=== PATIENT | male | born 1945 | race Caucasian/White ===

== ENCOUNTER 2024-01-17 07:40 | Day surgery (SDC) | payer OTHER, SELFPAY ==
[2024-01-05 10:26] VITALS: BMI 38.9
[2024-01-05 10:55] LABS: % Basophils 0.5 % (0-2); % Eosinophils 2.1 % (0-6); % Immature Granulocytes 0.6 % (0-0.5); % Lymphocytes 16.1 % (20.5-51.1); % Monocytes 9.1 % (1.7-9.3); % Neutrophils 71.6 % (42.2-75.2); Absolute Eosinophils 0.2 10^3/uL (0-0.7); Absolute Immature Granulocytes 0.1 10^3/uL (0-0.05); Absolute Lymphocytes 1.4 10^3/uL (1.2-3.4); Absolute Monocytes 0.8 10^3/uL (0.1-0.6); Absolute Neutrophils 6.2 10^3/uL (1.4-6.5); Hematocrit 43.1 % (39.0-52.0); Hemoglobin 15.4 g/dL (13.0-18.0); Mean Corp Hgb Conc. 35.7 g/dL (33.0-37.0); Mean Corpuscular Hgb 31.8 pg (27.0-31.0); Mean Platelet Volume 11.8 fL (7.4-10.4); Nucleated Red Blood Cells % 0 % (-); Platelet Count 179 10^3/uL (130-400); Red Blood Cell Count 4.84 10^6/uL (4.70-6.10); White Blood Cell Count 8.7 10^3/uL (4.8-10.8)
[2024-01-05 11:09] LABS: INR 1.17
[2024-01-05 12:04] LABS: ALT (SGPT) 18 U/L (0-50); AST (SGOT) 25 U/L (17-59); Albumin 4.3 g/dl (3.5-5.0); Alkaline Phosphatase 66 U/L (38-126); Blood Urea Nitrogen 18 mg/dl (9-20); Calcium 9.2 mg/dl (8.4-10.2); Carbon Dioxide 25 mmol/L (22-30); Chloride 106 mmol/L (98-107); Estimated Creatinine Clearance 78 ml/min; Glucose 88 mg/dl (70-99); Potassium 4.1 mmol/L (3.5-5.1); Sodium 138 mmol/L (135-145); Total Bilirubin 0.8 mg/dl (0.2-1.3); Total Protein 6.3 g/dl (6.3-8.2); eGFR > 60.00
[2024-01-17] VITALS (11 sets, daily range): BP systolic 101–157; BP diastolic 66–93; BMI 37.7
[2024-01-17 11:03] LABS: ACT-LR - POC 292 Seconds (116-155)
[2024-01-17 11:24] LABS: ACT-LR - POC 269 Seconds (116-155)
--- NOTE | 2024-01-17 11:39 | ITS.CL.ABL ---
Foster Care Social Worker - Ablation
Ablation
Procedure Report:
ELECTROPHYSIOLOGY ABLATION STUDY
�
DATE:: January 17, 2024�����������������������������REFERRING: Dr. El Newton
�
INDICATION: Persistent supraventricular tachycardia in the form of atrial fibrillation.��Prior 28 mm cryoballoon PVI
�
HISTORY: See H and P.��As above
�
ANTIARRHYTHMIC DRUG: Diltiazem
�
PRE-PROCEDURE GRAZYNA: No atrial thrombus on intracardiac ultrasound
�
PRESENTING RHYTHM: Atrial fibrillation
�
'TIME-OUT':��called and confirmed.
�
SEDATION/ANESTHESIA:��provided via the anesthesia department using general anesthesia (LMA).
�
INTRAVENOUS/ARTERIAL ACCESS:
Right femoral venous - 8Fr
Left femoral venous - 8 Fr, 6 Fr
Ultrasound guidance for bilateral femoral vein access was utilized by me to obtain access with demonstration of normal anatomy
CHADS-VASC Score:
�
HAS-Bled Score
�
PROCEDURE:
1.��A decapolar CS catheter was placed within the CS for mapping and pacing.��This was also used as the reference catheter for the 3-D map. The pulmonary veins were isolated at baseline. We were able to navigate the patient's IVC filter under
fluoroscopic imaging and were able to accommodate the pacing catheter, intracardiac ultrasound, and the transseptal sheath through the IVC filter.
�
2. The intracardiac ultrasound catheter was positioned in the RA to identify the FO for targeting of transseptal puncture, assist��in identification of the pulmonary vein ostia, monitoring pre and post ablation pulmonary vein flow velocities,
monitoring for 'bubble' formation during RF application as a sign of thermal injury,��and to monitor for pericardial effusion during mapping and ablation procedure.���Left atrial size, LV ejection fraction, and pulmonary vein flows were monitored
pre and post ablation procedure. The other valves were inspected and found to be free of significant regurgitation or stenosis.
�
3.��Half of the calculated heparin bolus was administered prior to the first transeptal puncture.��Transseptal puncture was performed to diagnose RA and LA pressure so that safetey of LA mapping and ablation could be further assessed, and to access
the left atrium and pulmonary veins for mapping and ablation.��This entailed advancing an 10 Setswana steerable with dilator into the superior vena cava and withdrawing both (monitoring intracardiac ultrasound, fluoroscopy and tip pressure) with the
tip oriented toward the atrial septum.��The fossa ovalis was engaged (indicated by sudden displacement of the sheath tip as well as tenting of the fossa seen on intracardiac ultrasound).��Left atrial access required a pass with the [place]
needle extended.��Left atrial catheter position was confirmed by pressure monitoring (RA mean pressure 8 mm Hg and LA mean presure 14 mm Hg), LA saturation (99%),��as well as fluoroscopy.��The sheath was advanced over the dilator and positioned in
the left atrium.��Over a ProTrac wire the contour sheath was brought to the left atrium over the wire after transseptal with a 10 Setswana steerable sheath. �The remainder of the calculated heparin bolus was administered and heparin was
infused to maintain ACT at 300 -350 seconds throughout the case.
�
4.��RA pacing was performed via the proximal decapolar poles and LA pacing was performed via the distal decapolr poles.
�
5. A quadrapolar catheter was first positioned at the His position for His Bundle recording which was tagged via the 3-D Navex sytem, and then passed to the RVA for RV pacing and recording.
�
6. The ablation catheter was positioned through one of the transeptal seaths and a 20 pole ring mapping catheter was positioned through the second seath into the LA and then the ostia of the LIPV, LSPV, RSPV and the RIPV.��
�
7.��Next, a 3-D map was created using Navex.���A 3-D reconstructed CT image was compared to the 3-D Navex map to assist in anatomic interpretation, mapping and ablation.��The CT image and the NavX image were fused.
�
8. A total of 62 lesions with PFA pulsed select catheter were given starting from each antra on the posterior wall through the posterior wall from left to right veins and also substrate modification of the interatrial septal fossa. Once entrance
block was confirmed in all 4 pulmonary veins and the posterior wall the patient was converted to sinus rhythm with 1 300 J synchronized biphasic shock. Entrance and exit block was achieved in all 4 pulmonary veins and the posterior wall the left
atrium.
�
9. Normal sinus node and AV mindy function post procedure with a resting sinus rate of 1200 ms. Heart AV block was noted at 410 ms in the AH.
�
TOTAL FLOURO TIME: 10.6 minutes 112 mGy
�
TOTAL RF DURATION: 0 minutes
�
REVERSAL OF HEPARIN: 30 mg of protamine, slow IV administration
�
COMPLICATIONS:
None
Intracardiac US shows no pericardial effusion post ablation.
�
SUMMARY:��
Complex left atrial mapping and ablation.
Isolation of all 4 pulmonary veins at baseline with isolation of left atrial posterior wall
�
RECOMMENDATIONS:
1. Admit to monitored bed.��
2. Resume anticoagulation
3.��Out of bed in 4 hours consider same discharge
4.� Low-dose calcium channel kamaljit
�
Copy to: Dr. El Newton
�
[2024-01-17] MEDS: FLOMAX 0.4 MG PO (14:01)
[2024-01-17] MEDS: ANESTHETIC LOZENGE 1 LOZENGE PO (14:05)
--- NOTE | 2024-01-17 15:53 | W.PN.UPDATE ---
Update Note
Progress Note Update
78 yo WM s/p redo PVI (same day). He feels good, no cp, sob, nereyda diet, voiding, EKG SR, b/l groins c/d/i no HT, soft. He will continue OAC Eliquis at 6pm at home. He will continue diltiazem. He will f/u Dr. Newton in 2 mo. He is for d/c home after
430pm if groins stable.
SUMMARY:��
Complex left atrial mapping and ablation.
Isolation of all 4 pulmonary veins at baseline with isolation of left atrial posterior wall
�
RECOMMENDATIONS:
1. Admit to monitored bed.��
2. Resume anticoagulation
3.��Out of bed in 4 hours consider same discharge
4.� Low-dose calcium channel kamaljit
�
Copy to: Dr. El Newton
== END 2024-01-17 15:30 | disposition home or self-care (01) ==
LOC: CATH 07:40
PROVIDERS: ATTENDING PHYSICIAN Internal Medicine Cardiovascular Disease; FAMILY PHYSICIAN Family Medicine; OTHER PHYSICIAN Internal Medicine Cardiovascular Disease
DX: I48.19 Other persistent atrial fibrillation (principal); R53.1 Weakness; R00.2 Palpitations; R06.02 Shortness of breath; Z79.01 Long term (current) use of anticoagulants; E66.9 Obesity, unspecified; Z68.38 Body mass index [BMI] 38.0-38.9, adult; I10 Essential (primary) hypertension; E78.5 Hyperlipidemia, unspecified; Z86.718 Personal history of other venous thrombosis and embolism; G47.33 Obstructive sleep apnea (adult) (pediatric); K21.9 Gastro-esophageal reflux disease without esophagitis; N40.0 Benign prostatic hyperplasia without lower urinary tract symptoms; G62.9 Polyneuropathy, unspecified; M81.0 Age-related osteoporosis without current pathological fracture; M19.90 Unspecified osteoarthritis, unspecified site; Z87.891 Personal history of nicotine dependence; Z79.899 Other long term (current) drug therapy
CPT/HCPCS: C1732; C1730; C1769; C1894; C1733; C1766; C1892; C1759; 36415; 76937; 80053; 83735; 85025; 85347; 85610; 86850; 86900; 86901; 93005; 93656

== ENCOUNTER 2025-04-22 08:01 | Inpatient (IN) | payer OTHER, SELFPAY ==
[2025-04-22 08:29] VITALS: BP 158/94
[2025-04-22 09:07] LABS: Hematocrit 40.9 % (39.0-52.0); Hemoglobin 13.8 g/dL (13.0-18.0); Mean Corp Hgb Conc. 33.7 g/dL (33.0-37.0); Mean Corpuscular Volume 90.1 fL (80.0-94.0); Nucleated Red Blood Cells % 0 % (-); Platelet Count 184 10^3/uL (130-400); Red Cell Dist. Width 13.7 % (11.5-14.5)
[2025-04-22 09:11] VITALS: BMI 34.4
[2025-04-22 09:16] LABS: ALT (SGPT) 18 U/L (0-50); AST (SGOT) 22 U/L (17-59); Albumin 3.8 g/dl (3.5-5.0); Alkaline Phosphatase 46 U/L (38-126); Blood Urea Nitrogen 11 mg/dl (9-20); Calcium 8.3 mg/dl (8.4-10.2); Carbon Dioxide 25 mmol/L (22-30); Chloride 110 mmol/L (98-107); Estimated Creatinine Clearance 94 ml/min; Glucose 100 mg/dl (70-99); Magnesium 2.1 mg/dl (1.6-2.3); Potassium 4.0 mmol/L (3.5-5.1); Sodium 139 mmol/L (135-145); Total Protein 5.9 g/dl (6.3-8.2); eGFR > 60.00
--- NOTE | 2025-04-22 09:35 | PTCARENOTE ---
pt aaox3. states no pain or sob. room air breath sounds clear. afib seen on monitor. iv placed labs sent ekg done. pt roomed in.
--- NOTE | 2025-04-22 09:44 | W.PN.CARDCBS ---
Addendum entered and electronically signed by Clifford Whitney MD 04/22/25 10:51:
I saw and examined the patient.
The THERMAL SPRAY OPERATOR or PA's note was reviewed and I agree with the note.
Comment: General: Well developed, well nourished in NAD.
Neck: Supple, no JVD, HJR, carotids +2 B/L, no bruits bilaterally.
Heart: Non displaced PMI, irregular, no murmurs, No S3, S4, no rubs.
Lungs: Clear to auscultation bilaterally, no wheeze, rhonchi, rubs bilaterally,
normal expiratory phase.
Abdomen: Normal bowel sounds, soft, non-tender, non-distended.
Extremities: No clubbing, cyanosis or edema bilaterally.
Neuro: Grossly nonfocal, awake, alert and oriented x3.
Ezra has a history of A-fib status post PVI in 2021 in 2023 on chronic Eliquis, sleep apnea, DVT. He presents for elective Tikosyn admission for persistent A-fib. He will undergo cardioversion on Tuesday, April 24 if remains in A-fib.
Original Note:
Today's Communication / Plan
-
CrCl 117, Tikosyn 250 mcg every 12 hours started as per EP recommendation from office visit 04/10/2025, pending response could consider increasing dose to 500 mcg every 12 hours
Impression / Plan
-
PCP: Dr. Caro
Cardiology: Dr. Newton
EP: Dr. Ricks
Impression:
Direct admission for Tikosyn loading for persistent A-fib 04/22/2025
Persistent A-fib
Previously on Multaq, stopped due to cost and ineffectiveness in 2021
s/p PVI 05/26/2022 and 01/2024
Chronic Eliquis OAC
STEPHANIE
h/o DVT
Plan:
-Patient presents to [facility] 04/22/2025 for direct admission for Tikosyn loading in the setting of persistent atrial fibrillation. Patient was previously on Multaq therapy which was effective, but on his own he stopped it due to cost back in 2021 and
recurred with A-fib. He then had PVI 05/26/2022 that was effective for a period of time and then he recurred with A-fib and Multaq was restarted but then stopped due to ineffectiveness. Patient had repeat PVI 01/2024 and recurred with A-fib
prompting evaluation with Dr. Ricks in the office on 04/10/2025. Patient was offered Tikosyn loading and he was agreeable. His outpatient lisinopril/HCTZ was stopped and he was started on plain lisinopril 20 mg daily.
-ECG reviewed by me shows atrial fibrillation with controlled ventricular response and QTc 404 ms.
-Start Tikosyn 250 mcg every 12 hours, orders placed by me
-Patient denies missing any doses of his usual Eliquis 5 mg BID (age 80, Cre 0.8). Continue Eliquis
-Outpatient dose of lisinopril/HCTZ was stopped and patient is now on plain lisinopril 20 mg daily. Initial BP 158/94, will follow BP throughout admission and add additional anti-HTN meds as needed. Patient denies any increase in LE edema since
stopping HCTZ, we discussed adding Lasix if needed, but he currently feels he does not need diuretic therapy.
-Outpatient dose of Cardizem CD 240 mg daily has been continued as well, will follow HR on telemetry and can decrease or discontinue as needed for bradycardia.
-Labs from 04/22/2025 reviewed by me, potassium is 4.0 magnesium is 2.1, outpatient doses of magnesium 400 mg daily and KCl 20 mEq daily have been continued. Repeat BMP in a.m., ordered by me.
Progress Note - Parts Interpreter
Subjective
Date of Service: April 22, 2025
He feels well, denies palpitations
Objective
Labs:
04/22/25 08:40
04/22/25 08:40
Labs
Hgb 13.8 g/dL (13.0-18.0) 04/22/25 08:40
Hct 40.9 % (39.0-52.0) 04/22/25 08:40
Plt Count 184 10^3/uL (130-400) 04/22/25 08:40
Sodium 139 mmol/L (135-145) 04/22/25 08:40
Potassium 4.0 mmol/L (3.5-5.1) 04/22/25 08:40
BUN 11 mg/dl (9-20) 04/22/25 08:40
Creatinine 0.8 mg/dL (0.7-1.3) 04/22/25 08:40
Glucose 100 mg/dl (70-99) H 04/22/25 08:40
Vital Signs and I&O:
Vital Signs
Temp Pulse BP Pulse Ox
98.7 F 80 158/94 97
04/22/25 09:15 04/22/25 09:00 04/22/25 08:29 04/22/25 08:30
Vital Signs
Temp Pulse BP Pulse Ox
98.7 F 80 158/94 97
04/22/25 09:15 04/22/25 09:00 04/22/25 08:29 04/22/25 08:30
Physical Exam
Physical Exam
GEN: NAD, AAO x 3
HEENT: EOMI
LUNGS: RA. CTA B/L, no wheeze
CV: A-fib with controlled ventricular response on telemetry. Irreg irreg, S1/S2, no murmur
ABD: ND
EXT: No edema B/L LE
NEURO: Gross non-focal
SKIN: No rash
--- NOTE | 2025-04-22 10:24 | W.CARD.TIKOS ---
Initiate Tikosyn
-
I verify that the patient has not taken any verapamil (Isoptin/Calan), ketoconazole (Nizoral), cimetidine (Tagamet), trimethoprim (Trimpex), trimethoprim/sulfamethoxazole (Bactrim), megesterol (Megace), prochlorperazine (Compazine),
hydrochlorothiazide (HCTZ), dolutegravir (Tivicay) or any Class I or Class III anti-arrhythmic within the last three days
AND
I verify that the patient has not taken amiodarone within the last THREE months, or that the patient's amiodarone plasma concentration is <0.3 mcg/mL.
Creatinine 0.8 mg/dL (0.7-1.3) 04/22/25 08:40
Estimated Creat Clear 94 ml/min 04/22/25 08:40
CrCl 117
Does patient have a Ventricular Conduction Abnormality: No
I have assessed the baseline QTc interval (using QT for heart rate less than 60 bpm) and deemed the patient is appropriate for Dofetilide therapy. I understand that Tikosyn is contraindicated if the QTc is >440msec (500msec in patients with
ventricular conduction abnormalities).
Baseline QTc (in msec): 404
Ordering Physician: Ambrose Ricks
[2025-04-22] MEDS: TIKOSYN 250 MCG PO ×2 (10:33→21:43)
[2025-04-22 11:32] VITALS: BP 138/84
--- NOTE | 2025-04-22 14:40 | CM ---
spoke to pt in room, he is prev indep, lives with is in a 2 story home with no steps to enter. he denies any dc planning needs. plan is for dc to home when medically stable
[2025-04-22 15:23] VITALS: BP 136/89
--- NOTE | 2025-04-22 17:34 | W.PN.UPDATE ---
Update Note
Progress Note Update
ECG 2 hours following initial dose of Tikosyn 250 mcg reviewed by me, QTc stable at 444 ms in the setting of A-fib with controlled ventricular response, patient will continue with Tikosyn dosing at 250 mcg every 12 hours
[2025-04-22 19:10] VITALS: BP 128/76
[2025-04-22] MEDS: ELIQUIS 5 MG PO (20:09)
[2025-04-22 23:43] VITALS: BP 141/98
--- NOTE | 2025-04-23 02:20 | PTCARENOTE ---
2nd dose of Tikosyn administered. EKG obtained 2hrs post per protocol. Pt remains Afib w/ a QTc level of 460. Denies any pain or SOB. Ambulates self in room. Reviewed POC w/ patient. Call mckenna within reach.
[2025-04-23 04:06] VITALS: BP 151/94
[2025-04-23 04:25] LABS: Hematocrit 40.8 % (39.0-52.0); Hemoglobin 13.7 g/dL (13.0-18.0); Mean Corp Hgb Conc. 33.6 g/dL (33.0-37.0); Mean Corpuscular Volume 93.4 fL (80.0-94.0); Platelet Count 160 10^3/uL (130-400); Red Cell Dist. Width 13.9 % (11.5-14.5)
[2025-04-23 04:40] LABS: Blood Urea Nitrogen 12 mg/dl (9-20); Calcium 8.7 mg/dl (8.4-10.2); Carbon Dioxide 26 mmol/L (22-30); Chloride 111 mmol/L (98-107); Estimated Creatinine Clearance 94 ml/min; Glucose 97 mg/dl (70-99); Potassium 4.1 mmol/L (3.5-5.1); Sodium 140 mmol/L (135-145); eGFR > 60.00
[2025-04-23 07:28] VITALS: BP 162/82
[2025-04-23] MEDS: ELIQUIS 5 MG PO ×2 (07:39→20:39)
[2025-04-23] MEDS: KCL 20 MEQ PO (07:39)
[2025-04-23] MEDS: MAGNESIUM OXIDE 400 MG PO (07:39)
[2025-04-23] MEDS: ZESTRIL 20 MG PO (07:39)
[2025-04-23] MEDS: CARDIZEM CD 240 MG PO (07:39)
[2025-04-23] MEDS: PROTONIX 20 MG PO (07:39)
[2025-04-23] MEDS: TIKOSYN 250 MCG PO ×2 (07:39→20:38)
[2025-04-23] MEDS: ZETIA 10 MG PO (07:39)
--- NOTE | 2025-04-23 08:24 | PTCARENOTE ---
pt aaox3. states no pain or sob. afib seen on monitor.
[2025-04-23 11:52] VITALS: BP 134/85
--- NOTE | 2025-04-23 14:45 | W.PN.CARDCBS ---
Today's Communication / Plan
-
Cont Tikosyn load
Cardioversion tomorrow.
Impression / Plan
-
PCP: Dr. Caro
Cardiology: Dr. Newton
EP: Dr. Ricks
Impression:
Direct admission for Tikosyn loading for persistent A-fib 04/22/2025
Persistent A-fib
Previously on Multaq, stopped due to cost and ineffectiveness in 2021
s/p PVI 05/26/2022 and 01/2024
Chronic Eliquis OAC
STEPHANIE
h/o DVT
Plan:
HPI: He has hx of AFib s/p PVI in 2021 and 2023 on chronic Eliquis, STEPHANIE and DVT. He presents to 04/22/2025 for direct admission for Tikosyn loading in the setting of persistent atrial fibrillation. Patient was previously on Multaq therapy which
was effective, but on his own he stopped it due to cost back in 2021 and recurred with A-fib. He then had PVI 05/26/2022 that was effective for a period of time and then he recurred with A-fib and Multaq was restarted but then stopped due to
ineffectiveness. Patient had repeat PVI 01/2024 and recurred with A-fib prompting evaluation with Dr. Ricks in the office on 04/10/2025. Patient was offered Tikosyn loading and he was agreeable. His outpatient lisinopril/HCTZ was stopped and he
was started on plain lisinopril 20 mg daily.
Remains in aFib with stable QTc and controlled ventricular rate
Continue Tikosyn 250 mcg every 12 hours
Cont Eliquis 5 mg BID (age 80, Cre 0.8).
Cardioversion Apr 24 if remains in afib.
Outpatient dose of lisinopril/HCTZ was stopped and patient is now on lisinopril 20 mg daily.
Outpatient dose of Cardizem CD 240 mg daily has been continued as well
Progress Note - Programmer Analyst Consultant
Subjective
Date of Service: April 23, 2025
Pt seen and examined. No complaints. No chest pain or shortness of breath.
Objective
Labs:
04/23/25 04:11
04/23/25 04:11
Labs
Hgb 13.7 g/dL (13.0-18.0) 04/23/25 04:11
Hct 40.8 % (39.0-52.0) 04/23/25 04:11
Plt Count 160 10^3/uL (130-400) 04/23/25 04:11
Sodium 140 mmol/L (135-145) 04/23/25 04:11
Potassium 4.1 mmol/L (3.5-5.1) 04/23/25 04:11
BUN 12 mg/dl (9-20) 04/23/25 04:11
Creatinine 0.8 mg/dL (0.7-1.3) 04/23/25 04:11
Glucose 97 mg/dl (70-99) 04/23/25 04:11
Vital Signs and I&O:
Vital Signs
Temp Pulse Resp BP Pulse Ox
98.3 F 92 18 162/82 97
04/23/25 11:58 04/23/25 07:39 04/23/25 11:58 04/23/25 07:39 04/23/25 11:58
Vital Signs
Temp Pulse Resp BP Pulse Ox
98.3 F 92 18 162/82 97
04/23/25 11:58 04/23/25 07:39 04/23/25 11:58 04/23/25 07:39 04/23/25 11:58
Intake & Output
04/21/25 04/22/25 04/23/25 04/24/25
06:59 06:59 06:59 06:59
Intake Total 360 / 360
Balance 360 / 360
Physical Exam
Physical Exam
General: No acute distress, AAOX3
Neck: Negative JVD
Heart: Irregularly irregular, Negative S3 positive S1/S2, Negative S4, No murmur
Lungs: CTA b/l, negative wheezes/rales/rhonchi
Abd: Positive BS, NT/ND, neg rebound/rigidity/guarding
Ext: Negative cyanosis/clubbing/edema
Neuro: nonfocal
[2025-04-23 15:28] VITALS: BP 135/97
--- NOTE | 2025-04-23 15:29 | PTCARENOTE ---
Rec'd Pt A,A+Ox3, presently resting in bed, offers no complaints.
[2025-04-23 20:06] VITALS: BP 131/73
[2025-04-23 22:51] VITALS: BP 147/80
--- NOTE | 2025-04-23 23:00 | PTCARENOTE ---
Pt AAOxx3, offers no complaints. Tikosyn dose #4 administered, f/u EKG performed. Pt updated on POC and NPO status for cardioversion in the AM. Pt offers no concerns, resting comfortably in bed.
[2025-04-24 04:46] VITALS: BMI 33.7
[2025-04-24 05:06] LABS: Blood Urea Nitrogen 16 mg/dl (9-20); Calcium 9.0 mg/dl (8.4-10.2); Carbon Dioxide 25 mmol/L (22-30); Chloride 109 mmol/L (98-107); Estimated Creatinine Clearance 93 ml/min; Glucose 112 mg/dl (70-99); Potassium 4.1 mmol/L (3.5-5.1); Sodium 139 mmol/L (135-145); eGFR > 60.00
[2025-04-24 07:24] VITALS: BP 153/93
[2025-04-24 08:38] VITALS: BP 156/88
[2025-04-24] MEDS: KCL 20 MEQ PO (08:39)
[2025-04-24] MEDS: CARDIZEM CD 240 MG PO (08:39)
[2025-04-24] MEDS: TIKOSYN 250 MCG PO (08:39)
[2025-04-24] MEDS: ELIQUIS 5 MG PO (08:40)
[2025-04-24] MEDS: PROTONIX 20 MG PO (08:40)
[2025-04-24] MEDS: ZETIA 10 MG PO (08:40)
[2025-04-24] MEDS: ZESTRIL 20 MG PO (08:40)
[2025-04-24] MEDS: MAGNESIUM OXIDE 400 MG PO (08:40)
--- NOTE | 2025-04-24 09:06 | W.PN.CARDCBS ---
Today's Communication / Plan
-
For cardioversion later today on Tikosyn and discharge to home
Impression / Plan
-
PCP: Dr. Caro
Cardiology: Dr. Newton
EP: Dr. Ricks
Impression:
Direct admission for Tikosyn loading for persistent A-fib 04/22/2025
Persistent A-fib
Previously on Multaq, stopped due to cost and ineffectiveness in 2021
s/p PVI 05/26/2022 and 01/2024
Chronic Eliquis OAC
STEPHANIE
h/o DVT
Plan:
Remains in A-fib
Tolerating Tikosyn load with stable QT
Cont Eliquis 5 mg BID (age 80, Cre 0.8).
For cardioversion later today and discharge to home afterwards
HPI: He has hx of AFib s/p PVI in 2021 and 2023 on chronic Eliquis, STEPHANIE and DVT. He presents to 04/22/2025 for direct admission for Tikosyn loading in the setting of persistent atrial fibrillation. Patient was previously on Multaq therapy which
was effective, but on his own he stopped it due to cost back in 2021 and recurred with A-fib. He then had PVI 05/26/2022 that was effective for a period of time and then he recurred with A-fib and Multaq was restarted but then stopped due to
ineffectiveness. Patient had repeat PVI 01/2024 and recurred with A-fib prompting evaluation with Dr. Ricks in the office on 04/10/2025. Patient was offered Tikosyn loading and he was agreeable. His outpatient lisinopril/HCTZ was stopped and he
was started on plain lisinopril 20 mg daily.
Progress Note - Obstetrics Nurse Practitioner
Subjective
Date of Service: April 24, 2025
No complaints
Objective
Labs:
04/23/25 04:11
04/24/25 04:41
Labs
Hgb 13.7 g/dL (13.0-18.0) 04/23/25 04:11
Hct 40.8 % (39.0-52.0) 04/23/25 04:11
Plt Count 160 10^3/uL (130-400) 04/23/25 04:11
Sodium 139 mmol/L (135-145) 04/24/25 04:41
Potassium 4.1 mmol/L (3.5-5.1) 04/24/25 04:41
BUN 16 mg/dl (9-20) 04/24/25 04:41
Creatinine 0.8 mg/dL (0.7-1.3) 04/24/25 04:41
Glucose 112 mg/dl (70-99) H 04/24/25 04:41
Vital Signs and I&O:
Vital Signs
Temp Pulse Resp BP Pulse Ox
98.0 F 77 18 156/88 98
04/24/25 07:25 04/24/25 08:38 04/24/25 07:25 04/24/25 08:38 04/24/25 07:25
Vital Signs
Temp Pulse Resp BP Pulse Ox
98.0 F 77 18 156/88 98
04/24/25 07:25 04/24/25 08:38 04/24/25 07:25 04/24/25 08:38 04/24/25 07:25
Intake & Output
04/22/25 04/23/25 04/24/25 04/25/25
06:59 06:59 06:59 06:59
Intake Total 360 / 360
Balance 360 / 360
Physical Exam
Physical Exam
General: Well developed, well nourished in NAD.
Neck: Supple, no JVD, HJR, carotids +2 B/L, no bruits bilaterally.
Heart: Non displaced PMI, irregular, no murmurs, No S3, S4, no rubs.
Lungs: Scattered rhonchi
Extremities: No clubbing, cyanosis or edema bilaterally.
Neuro: Grossly nonfocal, awake, alert and oriented x3.
[2025-04-24 12:43] VITALS: BP 149/68
[2025-04-24 12:45] VITALS: BP 149/68
--- NOTE | 2025-04-24 14:02 | PTCARENOTE ---
Received back into room 4 post CV. NSR on tele, HR 50s. VSS. AOx3. Offers no complaints at this time.
--- NOTE | 2025-04-24 14:10 | W.DS.TRANS ---
DC Summary - Photogravure Press Operator
-
Discharge Instructions:
Discharge Diagnosis/Procedures Tikosyn loading for persistent atrial
fibrillation
Diet As tolerated
Activity As tolerated
Driving Restrictions No driving for 24 hours
Bathing Restrictions None
Instructions:
Stand-Alone Forms:
Changes to Home Medications: Yes
Discharge Medications:
DC Medications w/original date entered in [employer]
apixaban 5 mg tablet (Eliquis) 5 mg PO BID 05/12/22
ezetimibe 10 mg tablet (Zetia) 10 mg PO DAILY 05/12/22
magnesium 200 mg tablet 400 mg PO DAILY 05/12/22
omeprazole 20 mg capsule,delayed release 20 mg PO DAILY 05/12/22
potassium chloride 20 mEq tablet,extended release 20 meq PO DAILY 05/12/22
tamsulosin 0.4 mg capsule 0.4 mg PO DAILY 05/12/22
vitamin B complex 1 cap PO DAILY 05/12/22
calcium carbonate (Calcium 600) 600 mg PO DAILY 01/03/24
dorzolamide 2 % eye drops 1 drp ophthalmic (eye) BID 01/03/24
diltiazem HCl 240 mg capsule,extended release 24 hr 240 mg PO DAILY Arrhythmia #30 caps 04/24/25
dofetilide 250 mcg capsule (Tikosyn) 250 mcg PO Q12H Arrhythmia #60 caps 04/24/25
lisinopril 20 mg tablet 20 mg PO DAILY Blood pressure #30 tabs 04/24/25
Home Medication Changes
New to Tikosyn
Pending Results: No
[2025-04-24 14:45] VITALS: BP 131/77
--- NOTE | 2025-04-24 15:29 | W.DS.TRANS ---
DC Summary - Bonding Equipment Operator
-
Discharge Instructions:
Discharge Diagnosis/Procedures Tikosyn loading for persistent atrial
fibrillation
Diet As tolerated
Activity As tolerated
Driving Restrictions No driving for 24 hours
Bathing Restrictions None
Instructions:
Stand-Alone Forms:
Changes to Home Medications: Yes
Discharge Medications:
DC Medications w/original date entered in [employer]
apixaban 5 mg tablet (Eliquis) 5 mg PO BID 05/12/22
ezetimibe 10 mg tablet (Zetia) 10 mg PO DAILY 05/12/22
magnesium 200 mg tablet 400 mg PO DAILY 05/12/22
omeprazole 20 mg capsule,delayed release 20 mg PO DAILY 05/12/22
potassium chloride 20 mEq tablet,extended release 20 meq PO DAILY 05/12/22
tamsulosin 0.4 mg capsule 0.4 mg PO DAILY 05/12/22
vitamin B complex 1 cap PO DAILY 05/12/22
calcium carbonate (Calcium 600) 600 mg PO DAILY 01/03/24
dorzolamide 2 % eye drops 1 drp ophthalmic (eye) BID 01/03/24
diltiazem HCl 240 mg capsule,extended release 24 hr 240 mg PO DAILY Arrhythmia #30 caps 04/24/25
dofetilide 250 mcg capsule (Tikosyn) 250 mcg PO Q12H Arrhythmia #60 caps 04/24/25
lisinopril 20 mg tablet 20 mg PO BID Blood pressure #60 tabs 04/24/25
Home Medication Changes
New to Tikosyn
Pending Results: No
== END 2025-04-24 15:40 | disposition home or self-care (01) | DRG 310 ==
LOC: IVU 08:01
PROVIDERS: Physician Assistant Medical; Student in an Organized Health Care Education/Training Program; ADMITTING PHYSICIAN Nuclear Medicine Nuclear Cardiology
PROC: 5A2204Z Restoration of Cardiac Rhythm, Single (ICD-10-PCS; 2025-04-24)
DX: I48.19 Other persistent atrial fibrillation (principal); Z79.01 Long term (current) use of anticoagulants
CPT/HCPCS: 80048; 80053; 83735; 85025; 85027; 92960; 93005